=== PATIENT | female | born 1980 | race Caucasian/White ===

== ENCOUNTER 2023-09-27 09:23 | Day surgery (SDC) | payer BC ==
[2023-09-27] MEDS ORDERED: Lidocaine 1% PF 5 ML VIAL ONE (09:59)
[2023-09-27] MEDS ORDERED: Sodium Bicarbonate 2.5 MEQ/5 ML VIAL ONE (09:59)
[2023-09-27 11:16] VITALS: BP 154/87; TEMP 98.4
== END 2023-09-27 11:55 | disposition home or self-care (01) ==
LOC: CSHRAD 09:23
PROVIDERS: ATTEND Neurological Surgery
PROC: B02BYZZ Computerized Tomography (CT Scan) of Spinal Cord using Other Contrast (ICD-10-PCS; principal; 2023-09-27)
DX: M50.10 Cervical disc disorder with radiculopathy, unspecified cervical region (principal); M48.02 Spinal stenosis, cervical region
CPT/HCPCS: 62302; 72126